=== PATIENT | male | born 1955 | race Caucasian/White ===

== ENCOUNTER 2023-02-14 16:15 | Emergency (ER) | payer MEDICARE, SELFPAY ==
[2023-02-14 16:27] VITALS: BP 152/72; PULSE 54; RESP 12; TEMP 36.9; O2SAT 98
--- NOTE | 2023-02-14 16:33 | ED.GENADULT ---
HPI - General Adult General Chief complaint: Skin/Abscess/Foreign Body Stated complaint: Bumps/Lumps on Face Time Seen by Provider: 02/14/23 16:33 Source: patient, RN notes reviewed and old records reviewed Mode of arrival: ambulatory Limitations: no limitations History of Present Illness HPI narrative: 67-year-old male presents to the [facility] with a red, inflamed area to the left side of his face. States has been there for over week. He has been trying a ?pop it. ? Has a history of Cysts to the under arms. Small area of erythema in the temporal area. Onset (ago): week(s) (1) Related Data Home Medications Medication Instructions Recorded Confirmed aspirin 81 mg tablet,delayed 81 mg PO DAILY 04/29/22 02/14/23 release mecobalamin (vitamin B12) 500 mcg 500 mcg PO DAILY 10/30/22 02/14/23 chewable tablet Allergies Allergy/AdvReac Type Severity Reaction Status Date / Time codeine Allergy Severe Anaphylaxis Verified 02/14/23 16:31 Review of Systems Review of Systems: All systems reviewed & are unremarkable except as noted in HPI and below Constitutional: Constitutional: Reports no additional constitutional complaints Eyes: Eyes: Reports no additional eye complaints ENT: Reports system reviewed and no additional complaints, except as documented Cardiovascular: Cardiovascular: Reports no additional cardiovascular complaints, Denies chest pain and Denies dyspnea Respiratory: Respiratory: Reports no additional respiratory complaints, Denies chest congestion, Denies cough and Denies dyspnea Gastrointestinal: Gastrointestinal: Reports no additional gastrointestinal complaints, Denies abdominal pain, Denies nausea and Denies vomiting Musculoskeletal: Musculoskeletal: Reports no additional musculoskeletal complaints Integumentary/Breasts: Skin/Breast: Reports as per HPI Neurologic: Reports system reviewed and no additional complaints, except as documented Psychiatric: Psychiatric: Reports no additional psychiatric complaints Allergic/Immunologic: Allergic/Immunologic: Reports no additional allergic/immunologic complaints [facility] Past Medical History Medical History Arthritis GERD (gastroesophageal reflux disease) Hypertension Surgical History Surgical History History of hip replacement January 2019 Family History Family History Father Cancer Hypertension Depression Sibling Cancer Grandparent Cerebrovascular accident Social History Social History Smoking status: Never smoker Alcohol intake: never Substance use: unknown Lack of Transportation: No Lack of Food: Never True Current Housing: I Have Housing Concerned About Future Housing: No Difficulty Paying Gas/Electric Bills: No Difficulty Paying for Meds: No Currently Unemployed: No Education: Trade/Vocational Certificate Difficulty w/ Childcare or Family Care: No Comments At the time of my signature, I reviewed and agree with the nursing past medical, surgical, social, and family history. There is no relevant family history pertinent to the patient complaint. Exam Const: General: cooperative, healthy appearing, comfortable, no acute distress, well developed, alert and well nourished Nutritional Appearance: well nourished Orientation/consciousness: patient oriented x3 Limitations: no limitations HENMT: Head: normal to inspection Head images: 1. 1 x 1 cm raised area. 1 x 1 and half erythema. Started cleaning area, dry skin removed, started draining thick purulent yellow, green drainage. Collected culture. Ears: hearing grossly normal bilaterally and external ears normal Face/Nose/Sinus: Normal external nose present, Normal nares present, Normal nasal mucous membranes and turbinates present
== END 2023-02-14 16:51 | disposition home or self-care (01) ==
PROVIDERS: Emergency Provider Nurse Practitioner; PCP Physician Assistant
DX: L03.211 Cellulitis of face (principal); L02.01 Cutaneous abscess of face; M19.90 Unspecified osteoarthritis, unspecified site; K21.9 Gastro-esophageal reflux disease without esophagitis; I10 Essential (primary) hypertension; Z79.82 Long term (current) use of aspirin
CPT/HCPCS: 87070; 87147; 87181; 87186; 87205; 99213; G0463

== ENCOUNTER 2024-08-11 02:52 | Observation (INO) | payer MEDICARE, SELFPAY ==
[2024-08-11] VITALS (15 sets, daily range): BP systolic 101–187; BP diastolic 50–79; PULSE 42–70; RESP 13–18; TEMP 36.2–36.8; O2SAT 96–100; BMI 36.6
--- NOTE | ~2024-08-11 | CT_ITS ---
EXAMINATION: CTA brain carotid DATE: 08/11/2024 07:15 INDICATION: Vertigo. Nystagmus. TECHNIQUE: Computed tomographic angiography (CTA) of the head was performed without and with 100 mL O mnipaque-350 intravenous contrast. CTA of the neck was performed with intravenous contrast. Automated exposure control and iterative reconstruction technique were employed. The dose-length product was 1 587.99 mGy-cm. Maximum intensity projection and volume rendered 3D-reconstructions were created by shelton lagos technologist on a separate workstation. COMPARISON: None. FINDINGS: HEAD CTA: There is no intracranial hemorrhage, acute infarction, or abnormal intracranial mass lesion . The ventricles are normal in size. There is mucosal thickening in the paranasal sinuses. The orbits are normal. The mastoid air cells are normal. The vertebral arteries are codominant. There is no sig nificant stenosis of basilar artery or the posterior cerebral arteries. There is no significant steno sis of the intracranial internal carotid arteries or anterior or middle cerebral arteries. Anterior c ommunicating artery is normal. There is no aneurysm. The posterior communicating arteries are normal. NECK CTA: There are no pathologically enlarged lymph nodes. There is no significant stenosis of the v ertebral arteries. There is an aberrant right subclavian artery. There is minimal plaque in the proxi mal internal carotid. There is 0% stenosis of the proximal right internal carotid artery relative to normal distal artery lumen diameter (NASCET criteria). There is 0% stenosis of the proximal left inte rnal carotid artery relative to normal distal artery lumen diameter. There is mild cervical spondylos is. IMPRESSION: 1. Normal brain. No aneurysm or significant intracranial arterial stenosis. 2. 0% stenosis of the proximal internal carotid arteries relative to normal distal artery lumen diame ters (NASCET criteria). Reviewed, dictated and finalized at location [] R COUNTER IMPRESSION: 1. Normal brain. No aneurysm or significant intracranial arterial stenosis. 2. 0% stenosis of the proximal internal carotid arteries relative to normal dis charity artery lumen diameters (NASCET criteria).
--- NOTE | 2024-08-11 03:04 | ECG_ITS ---
Test Date: 2024-08-11 03:09:49 Measurements Intervals [place] Rate: 43 P: 26 TN: 210 QRS: 35 QRSD: 97 T: 56 QT: 444 QTc: 378 Interpretive Statements SINUS BRADYCARDIA WITH FIRST DEGREE AV BLOCK BASELINE ARTIFACT- I, II, III, AVL, AVF ABNORMAL ECG No previous ECG available for comparison Electronically Signed On 08-11-2024 06:31:12 SERVICING REP by Cristian Pugh D.O.
--- NOTE | 2024-08-11 04:50 | ED.DIZZY ---
HPI - Dizziness General Chief Complaint: Dizziness Stated Complaint: dizzy Time Seen by Provider: 08/11/24 04:35 Source: patient and other (Sandra) Mode of arrival: ambulatory Limitations: no limitations History of Present Illness HPI Narrative: Patient presents with diffuse nausea for the past several days. He had 2 days of vomiting on Friday and Friday which then stopped. He visited urgent care on Friday and was tested with the viral panel a tested negative. He had taken home COVID test and tasted negative than as well. He was told he was dehydrated and advised to drink water but was not prescribed any medications. He denies any diarrhea or fever. Has from states that when he was vomiting earlier it was intense, vicious. No syncope or loss of consciousness. He denies any hearing changes, ear pain, or tinnitus. He does describe it as an intermittent sensation that the room is spinning. He does state that this is often preceded by him turning his head and makes the symptoms worse minute, the episodes seem to last for approximately 30 minutes. Sometimes the episodes happen when he changes position for example from seated to standing etc.. He denies any chest pain, shortness of breath, unilateral symptoms, slurred speech, altered mental status, dysphonia, aphasia, or abdominal pain. Related Data Home Medications Medication Instructions Recorded Confirmed aspirin 81 mg tablet,delayed 81 mg PO DAILY 04/29/22 03/29/24 release mecobalamin (vitamin B12) 500 mcg 500 mcg PO DAILY 10/30/22 03/29/24 chewable tablet doxycycline hyclate 100 mg capsule 100 mg PO BID 03/28/23 03/29/24 Allergies Allergy/AdvReac Type Severity Reaction Status Date / Time codeine Allergy Severe Anaphylaxis Verified 03/29/24 14:52 Sulfa (Sulfonamide AdvReac Intermediate Other Verified 03/29/24 14:52 Antibiotics) [facility] Past Medical History Medical History Arthritis GERD (gastroesophageal reflux disease) Hypertension Surgical History Surgical History History of hip replacement January 2019 Family History Family History Father Cancer Hypertension Depression Sibling Cancer Grandparent Cerebrovascular accident Social History Social History (Reviewed 05/12/23 @ 10:59 by Claire Murguia [facility]) Smoking status: Never smoker Alcohol intake: never Substance use: unknown Lack of Transportation: No Lack of Food: Never True Current Housing: I Have Housing Concerned About Future Housing: No Difficulty Paying Gas/Electric Bills: No Difficulty Paying for Meds: No Currently Unemployed: No Education: Trade/Vocational Certificate Difficulty w/ Childcare or Family Care: No Exam Narrative: GENERAL: Well-appearing, well-nourished, and in no acute distress. HEAD: Normocephalic, atraumatic. EYES: Non injected, non icteric. Patient has bilateral left beating horizontal nystagmus. When attempt to assess horizontal movements, he does have some nystagmus but it is not strictly horizontal. ENT: Nares clear, no rhinorrhea or epistaxis. Moist mucous membranes. Bilateral auditory canals clear without significant cerumen. Tympanic membranes usually visualized and normal. NECK: Supple. CHEST: Speaking in full sentences. No respiratory distress. HEART: Bradycardic rate and rhythm. ABDOMEN: Soft, nondistended. EXTREMITIES: Normal range of motion. No lower extremity edema. SKIN: Warm, dry. NEURO: No focal deficits. Alert and oriented x3. Speaks clearly without aphasia or dysarthria. No abnormal movements appreciated. PSYCH: Normal mood and affect. Course Vital Signs Vital signs: Vital Signs Temperature 97.7 F 08/11/24 03:02 Pulse Rate 44 L 08/11/24 03:02 Respiratory Rate 16 08/11/24 03:02 Blood Pressure 187/74 H 08/11/24 03:02 Pulse Oximetry 100 08/11/24 03:02 Oxygen Delivery Room Air 08/11/24 03:02 Temperature 97.7 F 08/11/24 03:02 Pulse Rate 47 L 08/11/24 08:10 Respiratory Rate 13 08/11/24 08:10 Blood Pressure 178/72 H 08/11/24 08:10 Pulse Oximetry 98 08/11/24 08:10 Oxygen Delivery Room Air 08/11/24 03:02 MDM - Dizziness MDM Narrative Medical decision making narrative: Patient presents with dizziness and nausea of several days duration occurring intermittently. He notes a room spinning sensation that occurs intermittently and seems to describe vertigo. In particular, he does note that his symptoms are often preceded by head movement but sometimes position movement as well. In the emergency department he is afebrile with vital signs notable for hypertension and bradycardia. DIFFERENTIAL DIAGNOSIS Peripheral causes: Foreign body, cerumen impaction, acute otitis media, labyrinthitis, benign paroxysmal positional vertigo, Meniere's disease, vestibular neuronitis, perilymphatic fistula, trauma, motion sickness, acoustic neuroma, ototoxic medications Central causes: infection ( encephalitis, meningitis, cerebritis); vertebrobasilar arterial insufficiency, subclavian steal syndrome, cerebellar or brainstem hemorrhage or infarction, vertebrobasilar migraine, trauma ( temporal bone fracture, post concussive syndrome); tumor (brainstem or cerebellum); MS; temporal lobe epilepsy He has left beating horizontal nystagmus on exam. He is initially given meclizine given the presumption of peripheral etiology with only slight change/improvement. Patient's heart rate did increase during orthostatic vital sign testing. His given IV fluids and diazepam. Patient continues to be symptomatic and when nurses attempt to ambulate him, he becomes very symptomatic, nearly falling. Discussed with Dr Mendoza who recommends admitting for MRI. Patient agreeable. Confirmed no pacemaker. Discussed with Dr Velarde for admission. Differential Diagnosis Differential diagnosis: Likely benign paroxysmal positional vertigo, orthostatic hypotension, vertebral basilar insufficiency, cerebrovascular accident, acute vestibular neuronitis and transient cerebral ischemia Lab Data Attestation: I reviewed the patient's lab results. Lab results narrative: Normocytic anemia, stable from previous 08/11/24 06:13 08/11/24 06:13 Labs: Lab Results 08/11/24 Range/Units 06:13 WBC 5.5 (4.5-10.0) K/mm3 RBC 4.79 (4.6-6.20) M/mm3 Hgb 12.8 L (14.0-18.0) g/dL Hct 40.4 L (42.0-52.0) % MCV 84.3 (80-100) fl MCH 26.7 (26-34) pg MCHC 31.7 L (32-36) g/dl RDW 13.9 (11.5-14.5) % Plt Count 194 (150-375) k/mm3 MPV 9.1 (7.4-10.4) fl Immature Gran % (Auto) 0.2 (0-0.5) % Neut % (Auto) 69.4 (45.5-73.1) % Lymph % (Auto) 20.6 (18.3-44.2) % Tift % (Auto) 7.2 (2.6-8.5) % Eos % (Auto) 1.7 (0-4.4) % Baso % (Auto) 0.9 (0.2-1.2) % Lymph # (Auto) 1.12 (0.9-3.2) K/mm3 Tift # (Auto) 0.4 (0.1-0.6) K/mm3 Eos # (Auto) 0.1 (0-0.3) K/mm3 Baso # (Auto) 0.1 (0.0-0.1) K/mm3 Abs Immat Gran (auto) 0.01 (0.00-0.031) K/mm3 Absolute Neuts (auto) 3.8 (1.3-6.7) K/mm3 Absolute Nucleated RBC 0.000 (0.0-0.012) K/mm3 Nucleated RBC % 0.0 (0.0-0.2) % Sodium 141 (137-145) mmol/L Potassium 3.9 (3.4-5.0) mmol/L Chloride 102 (98-107) mmol/L Carbon Dioxide 32 H (22-30) mmol/L Anion Gap 7 (4-12) mmol/L BUN 18 (9-20) mg/dL Creatinine 1.00 (0.7-1.3) mg/dL Estim Creat Clear Calc 75 ml/min Estimated GFR > 60 (59 - ) Glucose 121 H (65-110) mg/dL Calcium 9.3 (8.4-10.2) mg/dL Total Bilirubin 0.7 (0.2-1.3) mg/dL AST 29 (17-59) U/L ALT 39 (6-50) U/L Alkaline Phosphatase 64 (38-126) U/L Total Protein 7.0 (6.3-8.2) g/dL Albumin 4.3 (3.5-5.1) g/dL ECG Data EKG #1: Attestation: I personally reviewed and interpreted this ECG as follows: ECG completion date: 08/11/24 ECG completion time: 03:09 Prior ECG tracings: not available for review (No prior for comparison) Interpretation: Sinus bradycardia at a rate of 43 beats per minute. First-degree AV block with a WA interval of 210 milliseconds. QRS 97. QT/QTC 444/390. Good R-wave progression across the precordial leads. No T-wave inversions. Normal axis. Discharge Plan Discharge Clinical Impression: Vertigo, Bradycardia, sinus, First degree AV block Patient Disposition: Still a Patient Condition: Stable Prescriptions: No Action doxycycline hyclate 100 mg capsule 100 mg PO BID buspirone 7.5 mg tablet 7.5 mg PO BID PRN (Reason: anxiety) Qty: 30 1RF aspirin 81 mg tablet,delayed release (DR/EC) 81 mg PO DAILY mecobalamin (vitamin B12) 500 mcg tablet,chewable 500 mcg PO DAILY irbesartan-hydrochlorothiazide 150-12.5 mg tablet 1 tablet PO DAILY Qty: 90 3RF atorvastatin 10 mg tablet 10 mg PO DAILY Qty: 90 3RF pantoprazole 40 mg tablet,delayed release (DR/EC) 40 mg PO QAM Qty: 90 2RF trazodone 100 mg tablet 200 mg PO QHS Qty: 180 1RF Follow-up/Referrals: PHYSICIAN NOT ON STAFF,NONSTAFF [Primary Care Provider] - Time of Disposition: 08:36
[2024-08-11] MEDS: MECLIZINE HCL 25 MG TABLET PO (05:21)
[2024-08-11 06:19] LABS: Basophils Absolute Auto 0.1 K/mm3 (0.0-0.1); Basophils Percent Auto 0.9 % (0.2-1.2); Eosinophils Absolute Auto 0.1 K/mm3 (0-0.3); Eosinophils Percent Auto 1.7 % (0-4.4); Hematocrit 40.4 % (42.0-52.0); Hemoglobin 12.8 g/dL (14.0-18.0); Immature Granulocyte Absolute 0.01 K/mm3 (0.00-0.031); Immature Granulocyte Percent A 0.2 % (0-0.5); Lymphocytes Absolute Auto 1.12 K/mm3 (0.9-3.2); Lymphocytes Percent Auto 20.6 % (18.3-44.2); Mean Corpuscular HGB Conc 31.7 g/dl (32-36); Mean Corpuscular Hemoglobin 26.7 pg (26-34); Mean Corpuscular Volume 84.3 fl (80-100); Mean Platelet Volume 9.1 fl (7.4-10.4); Monocytes Absolute Auto 0.4 K/mm3 (0.1-0.6); Monocytes Percent Auto 7.2 % (2.6-8.5); Neutrophils Absolute Auto 3.8 K/mm3 (1.3-6.7); Neutrophils Percent Auto 69.4 % (45.5-73.1); Platelet Count Result 194 k/mm3 (150-375); Red Blood Count 4.79 M/mm3 (4.6-6.20); Red Cell Distribution Width 13.9 % (11.5-14.5); White Blood Count 5.5 K/mm3 (4.5-10.0)
[2024-08-11] MEDS: SODIUM CHLORIDE 0.9% IV 1,000 ML 999 ML IV CONT (06:34)
[2024-08-11 06:35] LABS: Alanine Aminotransferase 39 U/L (6-50); Albumin Level 4.3 g/dL (3.5-5.1); Alkaline Phosphatase 64 U/L (38-126); Anion Gap 7 mmol/L (4-12); Aspartate Amino Transferase 29 U/L (17-59); Bilirubin,Total 0.7 mg/dL (0.2-1.3); Blood Urea Nitrogen 18 mg/dL (9-20); Calcium 9.3 mg/dL (8.4-10.2); Carbon Dioxide 32 mmol/L (22-30); Chloride 102 mmol/L (98-107); Estimated CRCL calculation 75 ml/min; Estimated Glomerular Filt Rate > 60; Glucose 121 mg/dL (65-110); Potassium 3.9 mmol/L (3.4-5.0); Sodium 141 mmol/L (137-145)
[2024-08-11] MEDS: diazePAM INJ (*CRX) 10 MG/2 ML SYRINGE 2.5 MG IV PUSH (07:20)
[2024-08-11] MEDS: diphenhydrAMINE HCl INJ 50 MG/ML VIAL 25 MG IV PUSH (08:45)
--- NOTE | 2024-08-11 09:45 | ADMGEN ---
This patient, Luis Galvan, was admitted to Medical Room 348-01. Patient/family oriented to hospital policies and general routines including ID bracelet, bed and alarms, visiting hours, pain management, procedures, bathroom and other care routines, personal items, smoking policy, room service/diet, and visiting hours. Information on how to activate the Rapid Response Team has been discussed. Patient/Family are encouraged to report perceived risks to care and to ask questions if they do not understand what they are told or what they should do.
--- NOTE | 2024-08-11 11:52 | WPDNEURCNPN ---
Assessment and Plan Assessment and plan (1) Vertigo: Code(s): R42 - Dizziness and giddiness Status: Acute Plan Left-sided vestibular neuronitis with the possibility of posterior circulation stroke needs to be ruled out as planned MRI will be done. Consult date: 08/11/24 HPI: Luis Galvan is a 68 year old male admitted to the hospital through the emergency room where he presented with the complaints of dizziness , nausea several days duration in addition to the history of vomiting over the last 2 days initially he was seen in the urgent care where his viral evaluation was negative he had taken the COVID test at home which was negative but he was notedly dehydrated was advised to increase the fluid he had no history of n diarrhea or fever on the day of admission to the ER he was noted to have intense vomiting but no history of unconsciousness no history of hearing changes pain in the ear or tinnitus but he complained of intermittent sensation of the room spinning often preceded by him turning his head which making the symptomatology worse and episodes usually lasting for 30minutes gave no history of any other neurological symptomatology. Has been taking aspirin 81mg daily vitamin B12 500mg daily and doxycycline 100mg b.i.d.. He is allergic to codeine and sulfa. He mentioned he does have ongoing history of GERD hypertension and history of hip replacement in 2018 he has never smoker or alcohol intake or. On initial exam in the emergency room he was noted to have bilateral left sided beating horizontal nystagmus vital signs were normal except blood pressure 187/74 CBC was normal so as the BMP and complete lack EKG was with bradycardia 43 beats per minute head neck CTA was negative admitted to the hospital with the diagnosis of benign paroxysmal positional vertigo versus vertebral basilar insufficiency versus acute vestibular neuronitis Review of Systems Review of Systems: All systems reviewed & are unremarkable except as noted in HPI and below [facility] Past Medical History Medical History Arthritis GERD (gastroesophageal reflux disease) Hypertension Surgical History Surgical History History of hip replacement January 2019 Family History Family History Father Cancer Hypertension Depression Sibling Cancer Grandparent Cerebrovascular accident Social History Social History Smoking status: Never smoker Alcohol intake: never Substance use: never Do You Feel Safe in your Home?: Yes Lack of Transportation: No Lack of Food: Never True Current Housing: I Have Housing Concerned About Future Housing: No Difficulty Paying Gas/Electric Bills: No Difficulty Paying for Meds: No Currently Unemployed: No Education: Trade/Vocational Certificate Difficulty w/ Childcare or Family Care: No Spiritual care concerns: No Meds Home Medications and Allergies Home Medications Medication Instructions Recorded Confirmed Type aspirin 81 mg tablet,delayed 81 mg PO DAILY 04/29/22 03/29/24 History release mecobalamin (vitamin B12) 500 mcg 500 mcg PO DAILY 10/30/22 03/29/24 History chewable tablet doxycycline hyclate 100 mg capsule 100 mg PO BID 03/28/23 03/29/24 History buspirone 7.5 mg tablet 7.5 mg PO BID PRN anxiety #30 tabs 03/29/24 03/29/24 Rx irbesartan 150 1 tablet PO DAILY #90 tabs 04/27/24 Rx mg-hydrochlorothiazide 12.5 mg tablet atorvastatin 10 mg tablet 10 mg PO DAILY #90 tabs 05/14/24 Rx pantoprazole 40 mg tablet,delayed 40 mg PO QAM #90 tabs 05/21/24 Rx release trazodone 100 mg tablet 200 mg PO QHS #180 tabs 07/23/24 Rx Allergies Allergy/AdvReac Type Severity Reaction Status Date / Time codeine Allergy Severe Anaphylaxis Verified 08/11/24 09:53 Sulfa (Sulfonamide AdvReac Intermediate Other Verified 08/11/24 09:53 Antibiotics) Vital Signs Vital Signs - 24 hr 08/11/24 03:02 08/11/24 04:33 08/11/24 04:33 Temperature 36.5 C Pulse Rate 44 L 44 L 42 L Respiratory Rate 16 17 Blood Pressure 187/74 H 183/74 H Pulse Oximetry 100 97 Oxygen Delivery Room Air 08/11/24 06:13 08/11/24 06:16 08/11/24 06:17 Temperature Pulse Rate 45 L 47 L 70 Respiratory Rate Blood Pressure 146/72 H 142/77 H 132/69 Pulse Oximetry Oxygen Delivery 08/11/24 07:21 08/11/24 08:10 08/11/24 08:47 Temperature Pulse Rate 46 L 47 L 56 L Respiratory Rate 14 13 18 Blood Pressure 155/76 H 178/72 H 160/79 H Pulse Oximetry 98 98 99 Oxygen Delivery 08/11/24 09:36 08/11/24 09:36 08/11/24 10:20 Temperature 36.4 C 36.3 C L Pulse Rate 53 L 53 L 47 L Respiratory Rate 18 16 Blood Pressure 150/78 H 159/70 H Pulse Oximetry 98 98 Oxygen Delivery 08/11/24 11:45 Temperature Pulse Rate Respiratory Rate Blood Pressure Pulse Oximetry Oxygen Delivery Room Air Exam Narrative: revealed him to be awake alert cooperative in no obvious acute distress, head normocephalic with no cranial bruits, ear nose throat examination normal, neck supple with no cervical bruit no thyromegaly no lymphadenopathy, heart regular with no murmur, lungs clear to auscultation, abdomen is soft with no organomegaly, neurological examination revealed him to be awake alert oriented x3 his speech not dysphasic not dysarthric nose not dysphonic pupils round regular feels the vision for extraocular movements full with the left-sided beating nystagmus bilateral facial sensation intact face symmetrical tongue midline uvula midline motor examination revealed normal strength and tone deep tendon reflexes symmetrical plantars downgoing there is no evidence of gross cerebellar deficit. Results Labs 08/11/24 06:13 08/11/24 06:13 Labs: Short CBC 08/11/24 Range/Units 06:13 WBC 5.5 (4.5-10.0) K/mm3 Hgb 12.8 L (14.0-18.0) g/dL Hct 40.4 L (42.0-52.0) % Plt Count 194 (150-375) k/mm3 BMP 08/11/24 06:13 Sodium 141 Potassium 3.9 Chloride 102 Carbon Dioxide 32 H BUN 18 Creatinine 1.00 Glucose 121 H Calcium 9.3 Liver Function 08/11/24 Range/Units 06:13 Total Bilirubin 0.7 (0.2-1.3) mg/dL AST 29 (17-59) U/L ALT 39 (6-50) U/L Alkaline Phosphatase 64 (38-126) U/L Albumin 4.3 (3.5-5.1) g/dL
--- NOTE | 2024-08-11 12:39 | PM.IMHP ---
H&P: HPI History of Present Illness Date/Time: 08/11/24 12:39 Chief Complaint: Dizziness Narrative: 68 y/o M presents here with dizziness with PMH of arthritis, GERD, and HTN. The patient presents here from home for further evaluation of dizziness. He reports onset on Friday (08/07) while he was heading to [place] to listen to a friends band around 4 p.m. Dizziness so severe he was stumbling. Most severe on Friday, has improved since then and returned on Friday but remains less severe. Dizziness worsens with turning his head to the side, quick position changes and no alleviating factors. He describes the sensation as the room was spinning and that he was spinning. At its worst the dizziness lasted from 4 p.m. into the next morning but more on average they would only last a couple minutes and would resolve without intervention/OTC medications. Some visual disturbances during dizziness described as if stuff would move to the side). No dark spots, diplopia, blurred vision. He reports accompanying nausea with vomiting and initially had a headache. Describes as frontal and near his eyes, resolved. Last emesis was Friday. Denies focal numbness, focal weakness, vision changes, changes in speech, choking/difficulty swallowing, or changes in gait. He does not have a history of stroke or benign paroxysmal vertigo. Denies any new medications. Endorses occasional alcohol use, not daily. Initial VS at presentation: 97.7? F, HR 44, RR 16, 187/74, and 100% on RA. ED workup showed: No leukocytosis, hemoglobin 12.8 (previously 12.8 on 08/07/2024), no significant electrolyte derangements, creatinine 1.0 and for GFR, glucose 121. Head/neck CTA showed normal brain, no aneurysm or significant intracranial arterial stenosis, 0% stenosis of the bilateral proximal ICAs. Review of Systems Review of Systems: All systems reviewed & are unremarkable except as noted in HPI and below PMFSH Past Medical History Medical History Arthritis B12 deficiency GERD (gastroesophageal reflux disease) Hyperlipidemia Hypertension Surgical History Surgical History History of hip replacement January 2019, Left Hip History of tonsillectomy Family History Family History Father Cancer Hypertension Depression Sibling Cancer Grandparent Cerebrovascular accident Social History Social History Smoking status: Never smoker Alcohol intake: never Substance use: never Do You Feel Safe in your Home?: Yes Lack of Transportation: No Lack of Food: Never True Current Housing: I Have Housing Concerned About Future Housing: No Difficulty Paying Gas/Electric Bills: No Difficulty Paying for Meds: No Currently Unemployed: No Education: Trade/Vocational Certificate Difficulty w/ Childcare or Family Care: No Spiritual care concerns: No Meds Home Medications and Allergies Home Medications Medication Instructions Recorded Confirmed Type aspirin 81 mg tablet,delayed 81 mg PO DAILY 04/29/22 08/11/24 History release buspirone 7.5 mg tablet 7.5 mg PO BID PRN anxiety #30 tabs 03/29/24 08/11/24 Rx irbesartan 150 1 tablet PO DAILY #90 tabs 04/27/24 08/11/24 Rx mg-hydrochlorothiazide 12.5 mg tablet atorvastatin 10 mg tablet 10 mg PO DAILY #90 tabs 05/14/24 08/11/24 Rx pantoprazole 40 mg tablet,delayed 40 mg PO QAM #90 tabs 05/21/24 08/11/24 Rx release trazodone 100 mg tablet 200 mg PO QHS #180 tabs 07/23/24 08/11/24 Rx cholecalciferol (vitamin D3) 1,000 mcg PO DAILY 08/11/24 08/11/24 History mecobalamin (vitamin B12) 1,000 500 mcg PO DAILY 08/11/24 08/11/24 History mcg chewable tablet (B12 Active) Allergies Allergy/AdvReac Type Severity Reaction Status Date / Time codeine Allergy Severe Anaphylaxis Verified 08/11/24 09:53 Sulfa (Sulfonamide AdvReac Intermediate Other Verified 08/11/24 09:53 Antibiotics) Vital Signs Vital Signs - 24 hr 08/11/24 03:02 08/11/24 04:33 08/11/24 04:33 Temperature 97.7 F Pulse Rate 44 L 44 L 42 L Respiratory Rate 16 17 Blood Pressure 187/74 H 183/74 H Pulse Oximetry 100 97 Oxygen Delivery Room Air 08/11/24 06:13 08/11/24 06:16 08/11/24 06:17 Temperature Pulse Rate 45 L 47 L 70 Respiratory Rate Blood Pressure 146/72 H 142/77 H 132/69 Pulse Oximetry Oxygen Delivery 08/11/24 07:21 08/11/24 08:10 08/11/24 08:47 Temperature Pulse Rate 46 L 47 L 56 L Respiratory Rate 14 13 18 Blood Pressure 155/76 H 178/72 H 160/79 H Pulse Oximetry 98 98 99 Oxygen Delivery 08/11/24 09:36 08/11/24 09:36 08/11/24 10:20 Temperature 97.6 F 97.3 F L Pulse Rate 53 L 53 L 47 L Respiratory Rate 18 16 Blood Pressure 150/78 H 159/70 H Pulse Oximetry 98 98 Oxygen Delivery 08/11/24 11:45 Temperature Pulse Rate Respiratory Rate Blood Pressure Pulse Oximetry Oxygen Delivery Room Air Exam Narrative: horizontal nystagmus. otherwise fine. Const: General: comfortable and no acute distress Other: , male, nontoxic appearance HENMT: Face/Nose/Sinus: Normal nares present Mouth: Yes moist mucous membranes Eyes: General: appearance normal, both eyes and all related structures Sclera: sclerae normal Pupils: Equal, round and reactive pupils present EOM: EOMs intact bilaterally Resp: Effort & Inspection: normal respiratory effort Auscultation: clear to auscultation bilaterally Cardio: Rate: regular rate Rhythm: regular rhythm Other: S1-S2 present without murmur, rub, ectopy GI: Other: abdomen soft, nondistended, nontender Skin: General skin exam: normal color and no rashes or lesions noted Wounds: no wounds Neuro: Speech: normal speech Motor exam (neuro): 5/5 motor strength present throughout Sensory Exam: normal sensation Other: A/Ox4. horizontal nystagmus (left side beat). Extrem: General: normal to inspection Psych: Mental Status: mental status grossly normal Affect: normal affect Other: good insight and judgment H&P: Results Labs Labs: Short CBC 08/11/24 Range/Units 06:13 WBC 5.5 (4.5-10.0) K/mm3 Hgb 12.8 L (14.0-18.0) g/dL Hct 40.4 L (42.0-52.0) % Plt Count 194 (150-375) k/mm3 BMP 08/11/24 06:13 Sodium 141 Potassium 3.9 Chloride 102 Carbon Dioxide 32 H BUN 18 Creatinine 1.00 Glucose 121 H Calcium 9.3 Liver Function 08/11/24 Range/Units 06:13 Total Bilirubin 0.7 (0.2-1.3) mg/dL AST 29 (17-59) U/L ALT 39 (6-50) U/L Alkaline Phosphatase 64 (38-126) U/L Albumin 4.3 (3.5-5.1) g/dL Assessment and Plan Assessment and plan (1) Vertigo: Code(s): R42 - Dizziness and giddiness Status: Acute Assessment and Plan: - Head/Neck CT 1. Normal brain. No aneurysm or significant intracranial arterial stenosis. 2. 0% stenosis of the proximal internal carotid arteries relative to normal distal artery lumen diameters (NASCET criteria). - neurology consulted, Kelly BERNABE provided the following recs: Plan for brain MRI to rule out CVA Left-sided vestibular neuritis versus posterior circulation stroke - add lipid panel and A1C - continue atorvastatin and daily ASA, add Plavix while ruling out CVA and meclizine prn. - neuro checks q.4 - no change with Rosalino maneuver - DDx: left-sided vestibular neuritis, posterior circulation stroke, BPV, hypertensive urgency Patient refused an MRI stating he is requesting outpatient MRI due to severe anxiety. Has previously tried 3 separate occasions to undergo an MRI, did not tolerate and has previously been sedated for imaging. Does not want to be transferred for imaging after long discussion with bedside RN. Okay with monitoring BP and HR overnight and scheduling outpatient imaging vs transfer. (2) First degree AV block: Code(s): I44.0 - Atrioventricular block, first degree Status: Acute Assessment and Plan: - EKG, initial: sinus ramesh (rate 43) with first degree AV block. no previous available for comparison - HR range since arrival: 42-70 - reviewed home medications, no rate controlling meds - telemetry monitoring (3) Hypertension: Qualifiers: Hypertension type: primary hypertension Qualified Code(s): I10 - Essential (primary) hypertension Code(s): I10 - Essential (primary) hypertension Status: Chronic Assessment and Plan: - chronic, currently 159/70 - continue home medications: irbesartan-HCTZ - add hydralazine prn for BP greater than 180/90 - monitor Plan Diet: Regular GI Prophylaxis: Not currently indicated DVT Prophylaxis: SCDs Lines: Peripheral Code Status: Full code Quality VTE Prophylaxis VTE prophylaxis: mechanical ordered Hospitalist MIPS Advance Care Plan I have confirmed that the patient's Advanced Care Plan is present, code status is documented, or surrogate decision maker is listed in patient medical record.: Yes Medication Reconciliation I have utilized all available resources to obtain, update and review the patients current medications (includes all prescriptions, OTC, herbals, cannabis, and nutritional supplements).: Yes
[2024-08-11] MEDS: MECLIZINE HCL 12.5 MG TABLET PO ×2 (17:20→20:12)
[2024-08-11] MEDS: traZODone HCL 50 MG TABLET 200 MG PO (20:12)
[2024-08-12] VITALS (14 sets, daily range): BP systolic 124–155; BP diastolic 59–71; PULSE 42–59; RESP 12–18; TEMP 36.2–36.8; O2SAT 94–98
[2024-08-12 06:45] LABS: Basophils Absolute Auto 0.1 K/mm3 (0.0-0.1); Basophils Percent Auto 1.2 % (0.2-1.2); Eosinophils Absolute Auto 0.2 K/mm3 (0-0.3); Eosinophils Percent Auto 4.7 % (0-4.4); Hematocrit 38.8 % (42.0-52.0); Hemoglobin 12.1 g/dL (14.0-18.0); Lymphocytes Absolute Auto 1.08 K/mm3 (0.9-3.2); Lymphocytes Percent Auto 25.3 % (18.3-44.2); Mean Corpuscular HGB Conc 31.2 g/dl (32-36); Mean Corpuscular Hemoglobin 26.6 pg (26-34); Mean Corpuscular Volume 85.3 fl (80-100); Mean Platelet Volume 9.3 fl (7.4-10.4); Monocytes Absolute Auto 0.4 K/mm3 (0.1-0.6); Monocytes Percent Auto 8.4 % (2.6-8.5); Neutrophils Absolute Auto 2.6 K/mm3 (1.3-6.7); Neutrophils Percent Auto 60.4 % (45.5-73.1); Platelet Count Result 174 k/mm3 (150-375); Red Blood Count 4.55 M/mm3 (4.6-6.20); Red Cell Distribution Width 14.1 % (11.5-14.5); White Blood Count 4.3 K/mm3 (4.5-10.0)
--- NOTE | 2024-08-12 06:56 | PC.NURSE ---
This RN received report OTP at [id number] from Jennie JONES.
[2024-08-12 07:03] LABS: Anion Gap 3 mmol/L (4-12); Blood Urea Nitrogen 17 mg/dL (9-20); Carbon Dioxide 31 mmol/L (22-30); Chloride 105 mmol/L (98-107); Cholesterol 132 mg/dL (0-200); Estimated CRCL calculation 63 ml/min; Estimated Glomerular Filt Rate 60; Glucose 119 mg/dL (65-110); HDL Direct 40 mg/dL; Potassium 4.1 mmol/L (3.4-5.0); Sodium 139 mmol/L (137-145); Triglycerides 98 mg/dL (<150)
[2024-08-12 07:14] LABS: LDL Cholesterol Direct 66 mg/dL
[2024-08-12 08:18] LABS: Hemoglobin A1C 7.1 % (<5.7)
--- NOTE | 2024-08-12 08:50 | P.PNIM_ITS ---
Progress Note: A&P Assessment and Plan (1) Vertigo: Code(s): R42 - Dizziness and giddiness Status: Acute Assessment and Plan: - DDx: left-sided vestibular neuritis, posterior circulation stroke, BPV, hypertensive urgency vs bradycardia - Head/Neck CTA 1. Normal brain. No aneurysm or significant intracranial arterial stenosis. 2. 0% stenosis of the proximal internal carotid arteries relative to normal distal artery lumen diameters (NASCET criteria). - Lipid panel WNL - A1C 7.1 - continue atorvastatin and daily ASA, per neurology Dr. Villareal no need to add plavix at this time - meclizine ordered - neuro checks q.4 - no change with Rosalino maneuver - Monitor CBC, CMP, magnesium, troponin, and lipid profile - Monitor blood pressure, allow for permissive hypertension. Will treat h ypertension if systolic is greater than 220 and/or diastolic greater than 120 or if the patient has active comorbidities - Telemetry monitoring - neurology consulted, Dionna BERNABE provided the following recs: Per chart review, patient refused an MRI stating he is requesting outpatient MRI due to severe anxiety. Has previously tried 3 separate occasions to undergo an MRI, did not tolerate and has previously been sedated for imaging. Does not want to be transferred for imaging after long discussion with bedside RN. Okay with monitoring BP and HR overnight and scheduling outpatient imaging. (2) First degree AV block: Code(s): I44.0 - Atrioventricular block, first degree Status: Acute Assessment and Plan: - EKG, initial: sinus ramesh (rate 43) with first degree AV block. no previous available for comparison - HR range since arrival: 42-70 - reviewed home medications, no rate controlling meds - telemetry monitoring Spoke with patients RN who states that the overnight MD had him transferred to IMU due to patient becoming bradycardic to the 20-30s. - Cardiology consulted - sinus bradycardia - has not noticed any pauses in the last 24 hours - previously mentioned pauses may be secondary to increased autonomic activation secondary to nausea and vomiting from his vertigo - he can follow up with Cardiology outpatient (3) Hypertension: Qualifiers: Hypertension type: primary hypertension Qualified Code(s): I10 - Essential (primary) hypertension Code(s): I10 - Essential (primary) hypertension Status: Chronic Assessment and Plan: Chronic, continue home medications - continue irbesartan 150 mg/hydrochlorothiazide 12.5 mg p.o. daily - add hydralazine prn for BP greater than 180/90 - monitor Plan Diet: Regular GI Prophylaxis: Not currently indicated DVT Prophylaxis: SCDs Lines: Peripheral Code Status: Full code Time Spent With Patient Time with patient: 25 - 35 minutes Subjective Date/time seen: 08/12/24 08:50 Interval history: 68 year old male with PMH of arthritis, GERD, and HTN presents to the hospital with dizziness. Spoke with patients RN who states that the overnight MD had him transferred to IMU due to patient becoming bradycardic to the 20-30s. Patient is pleasant lying comfortably in bed. He continues to endorse slight dizziness however he states that this is much improved since admission. He notes that he was moved to the IMU due to low heart rates. he denies any associated symptoms with the bradycardia. He was evaluated by Cardiology today who recommend a Holter monitor at time of discharge with follow-up in the cardiology office. Also discussed patient with Neurology who notes that patient does not need Plavix therapy as he is on statin and aspirin for his prior TIA. Per Dr. Porter patient is able to get an outpatient MRI to further rule out stroke. Patient has no other complaints at this time denying chest pain, shortness a breath, nausea / vomiting, and abdominal pain. Review of Systems Review of Systems: All systems reviewed & are unremarkable except as noted in HPI and below Exam Narrative: AF HR 50 RR 16 SpO2 16 BP 139/65 General: male in no acute respiratory distress who is nontoxic appearing, lying semi recumbent in bed. HEENT: Normocephalic. Atraumatic. Extraocular movement intact. Sclera clear and anicteric. No facial asymmetry. no nystagmus. Chest: Lungs are clear to auscultation bilaterally. No wheezes or crackles. CV: Heart was Bradycardic and regular rhythm. S1/S2. No murmurs, gallops, or rubs. Abd: Abdomen was soft. Nontender. Nondistended. Positive bowel sounds. No organomegaly or masses. Ext: No clubbing, cyanosis, or edema. 2+ DP pulses bilaterally. Neuro: Patient is alert and oriented x4. Strength is 5/5 in both upper and lower extremities. Cranial nerves 2-12 are intact. Speech is clear. Objective Data Vital Signs Vital Signs: Vital Signs - 24 hr 08/11/24 09:36 08/11/24 09:36 08/11/24 10:20 Temperature 97.6 F 97.3 F L Pulse Rate 53 L 53 L 47 L Respiratory Rate 18 16 Blood Pressure 150/78 H 159/70 H Pulse Oximetry 98 98 Oxygen Delivery 08/11/24 11:45 08/11/24 12:59 08/11/24 15:40 Temperature 98.3 F Pulse Rate 46 L 54 L Respiratory Rate 16 Blood Pressure 136/54 L Pulse Oximetry 96 Oxygen Delivery Room Air 08/11/24 16:00 08/11/24 21:32 08/11/24 20:00 Temperature 97.1 F L Pulse Rate 57 L 53 L Respiratory Rate 16 Blood Pressure 101/50 L Pulse Oximetry 97 Oxygen Delivery Room Air 08/11/24 20:00 08/12/24 00:00 08/12/24 04:00 Temperature Pulse Rate 47 L 43 L 44 L Respiratory Rate Blood Pressure Pulse Oximetry Oxygen Delivery 08/12/24 04:29 08/12/24 08:10 08/12/24 08:49 Temperature 97.2 F L 98.1 F Pulse Rate 53 L 49 L Respiratory Rate 16 12 Blood Pressure 126/71 148/59 H Pulse Oximetry 95 98 95 Oxygen Delivery Room Air Intake/Output Intake/Output: Intake & Output 08/09/24 08/10/24 08/11/24 08/12/24 23:59 23:59 23:59 23:59 Intake Total 1440 0 Balance 1440 0 Meds/Results Medications: Active Medications Generic Name Dose Route Start Last Admin Trade Name Michaelq PRN Reason Stop Dose Admin Acetaminophen 650 mg 08/11/24 08:36 Acetaminophen 325 Mg Tablet PO Q4H PRN Mild Pain (1-3) or Fever Aspirin 81 mg 08/12/24 09:00 Aspirin 81 Mg Enteric Tablet PO DAILY [facility] Atorvastatin Calcium 10 mg 08/12/24 09:00 Atorvastatin 10 Mg Tablet PO DAILY [facility] Buspirone HCl 5 mg 08/11/24 16:51 Buspirone Hcl 5 Mg Tablet PO BID PRN anxiety Buspirone HCl 2.5 mg 08/11/24 16:52 Buspirone Hcl 2.5 Mg Tablet PO BID PRN anxiety Cyanocobalamin 500 mcg 08/12/24 09:00 Cyanocobalamin 500 Mcg Tablet PO QAM [facility] Hydralazine HCl 10 mg 08/11/24 13:03 Hydralazine Hcl 20 Mg/Ml Vial IV PUSH Q8H PRN BP greater than 180/90 Hydrochlorothiazide 12.5 mg 08/12/24 09:00 Hydrochlorothiazide 12.5 Mg Capsule PO QAM [facility] Irbesartan 150 mg 08/12/24 09:00 Irbesartan 150 [facility] [place] Meclizine HCl 12.5 mg 08/11/24 17:00 08/11/24 20:12 Meclizine Hcl 12.5 Mg Tablet PO 12.5 mg QID [facility] Administration Ondansetron HCl 4 mg 08/11/24 08:36 Ondansetron Inj 4 Mg/2 Ml Vial IV PUSH Q4H PRN Nausea Pantoprazole Sodium 40 mg 08/12/24 09:00 Pantoprazole 40 Mg Tablet PO QAM [facility] Trazodone HCl 200 mg 08/11/24 21:00 08/11/24 20:12 Trazodone Hcl 50 Mg Tablet PO 200 mg QHS [facility] Administration Vitamin D 1,000 units 08/12/24 09:00 Cholecalciferol 1,000 Units Tablet PO DAILY [facility] Radiology Results: ITS Impressions Head/Neck CTA 08/11/24 07:58 IMPRESSION: 1. Normal brain. No aneurysm or significant intracranial arterial stenosis. 2. 0% stenosis of the proximal internal carotid arteries relative to normal distal artery lumen diameters (NASCET criteria). Labs Labs: Laboratory Results - last 24 hr 08/12/24 06:39 WBC 4.3 L RBC 4.55 L Hgb 12.1 L Hct 38.8 L MCV 85.3 MCH 26.6 MCHC 31.2 L RDW 14.1 Plt Count 174 MPV 9.3 Immature Gran % (Auto) 0.0 Neut % (Auto) 60.4 Lymph % (Auto) 25.3 [place] % (Auto) 8.4 Eos % (Auto) 4.7 H Baso % (Auto) 1.2 Lymph # (Auto) 1.08 [place] # (Auto) 0.4 Eos # (Auto) 0.2 Baso # (Auto) 0.1 Abs Immat Gran (auto) 0.00 Absolute Neuts (auto) 2.6 Absolute Nucleated RBC 0.000 Nucleated RBC % 0.0 Sodium 139 Potassium 4.1 Chloride 105 Carbon Dioxide 31 H Anion Gap 3 L BUN 17 Creatinine 1.20 Estim Creat Clear Calc 63 Estimated GFR 60 Glucose 119 H Hemoglobin A1c 7.1 H Calcium 9.0 Triglycerides 98 Cholesterol 132 LDL Cholesterol Direct 66 HDL Direct 40 Quality VTE Prophylaxis VTE prophylaxis: mechanical ordered
[2024-08-12] MEDS: MECLIZINE HCL 12.5 MG TABLET PO ×3 (09:00→21:03)
[2024-08-12] MEDS: PANTOPRAZOLE 40 MG TABLET PO (09:39)
[2024-08-12] MEDS: IRBESARTAN 150 MG TABLET PO (09:39)
[2024-08-12] MEDS: CHOLECALCIFEROL 1,000 UNITS TABLET 1000 UNITS PO (09:40)
[2024-08-12] MEDS: ASPIRIN 81 MG ENTERIC TABLET PO (09:40)
[2024-08-12] MEDS: CYANOCOBALAMIN 500 MCG TABLET PO (09:40)
[2024-08-12] MEDS: ATORVASTATIN 10 MG TABLET PO (09:40)
[2024-08-12] MEDS: hydroCHLOROthiazide 12.5 MG CAPSULE PO (09:40)
--- NOTE | 2024-08-12 13:02 | P.CONCA_ITS ---
Assessment and Plan Assessment and plan (1) Hypertension: Qualifiers: Hypertension type: primary hypertension Qualified Code(s): I10 - E ssential (primary) hypertension Code(s): I10 - Essential (primary) hypertension Status: Chronic (2) Bradycardia, sinus: Code(s): R00.1 - Bradycardia, unspecified Status: Acute Plan 60-year-old man with hypertension initially presented with dizziness, nausea, and vomiting now found to have sinus bradycardia sinus bradycardia - has not noticed any pauses in the last 24 hours - previously mentioned pauses may be secondary to increased autonomic activation secondary to nausea and vomiting from his vertigo - he can follow up with Cardiology outpatient hypertension - goal systolic blood pressure less than 130 - continue irbesartan 150 mg/hydrochlorothiazide 12.5 mg p.o. daily hyperlipidemia - continue atorvastatin 10 mg every evening History of Present Illness History of Present Illness Consult date/time: 08/12/24 13:02 Requesting physician: Deana Santamaria APRN Consult reason: Other Reason For Visit: vertigo Narrative: 60-year-old man with hypertension initially presented with dizziness, nausea, and vomiting. This has been ongoing for the last 2 days and upon admission he was evaluated for vertigo. He is also now found to have bradycardia with ventricular rates of 40s for which Cardiology has been consulted. He wears an Apple watch at home and has noticed increasing heart rates with exertion at a lower resting heart rate. He denies any exertional intolerance or syncopal episodes. Prior to his episodes of vertigo, he has not felt any illness, sickness or physical exertion limited by dizziness, chest pain, or shortness of breath. He has not noticed any exertional syncopal episodes either. Review of Systems Review of Systems: All systems reviewed & are unremarkable except as noted in HPI and below PMFSH Past Medical History Medical History Arthritis B12 deficiency GERD (gastroesophageal reflux disease) Hyperlipidemia Hypertension Surgical History Surgical History History of hip replacement January 2019, Left Hip History of tonsillectomy Family History Family History Father Cancer Hypertension Depression Sibling Cancer Grandparent Cerebrovascular accident Social History Social History Smoking status: Never smoker Alcohol intake: never Substance use: never Do You Feel Safe in your Home?: Yes Lack of Transportation: No Lack of Food: Never True Current Housing: I Have Housing Concerned About Future Housing: No Difficulty Paying Gas/Electric Bills: No Difficulty Paying for Meds: No Currently Unemployed: No Education: Trade/Vocational Certificate Difficulty w/ Childcare or Family Care: No Spiritual care concerns: No Meds Home Medications and Allergies Home Medications Medication Instructions Recorded Confirmed Type aspirin 81 mg tablet,delayed 81 mg PO DAILY 04/29/22 08/11/24 History release buspirone 7.5 mg tablet 7.5 mg PO BID PRN anxiety #30 tabs 03/29/24 08/11/24 Rx irbesartan 150 1 tablet PO DAILY #90 tabs 04/27/24 08/11/24 Rx mg-hydrochlorothiazide 12.5 mg tablet atorvastatin 10 mg tablet 10 mg PO DAILY #90 tabs 05/14/24 08/11/24 Rx pantoprazole 40 mg tablet,delayed 40 mg PO QAM #90 tabs 05/21/24 08/11/24 Rx release trazodone 100 mg tablet 200 mg PO QHS #180 tabs 07/23/24 08/11/24 Rx cholecalciferol (vitamin D3) 1,000 mcg PO DAILY 08/11/24 08/11/24 History mecobalamin (vitamin B12) 1,000 500 mcg PO DAILY 08/11/24 08/11/24 History mcg chewable tablet (B12 Active) Allergies Allergy/AdvReac Type Severity Reaction Status Date / Time codeine Allergy Severe Anaphylaxis Verified 08/11/24 09:53 Sulfa (Sulfonamide AdvReac Intermediate Other Verified 08/11/24 09:53 Antibiotics) Vital Signs Vital Signs - 24 hr 08/11/24 15:40 08/11/24 16:00 08/11/24 21:32 Temperature 36.8 C 36.2 C L Pulse Rate 54 L 57 L 53 L Respiratory Rate 16 16 Blood Pressure 136/54 L 101/50 L Pulse Oximetry 96 97 Oxygen Delivery 08/11/24 20:00 08/11/24 20:00 08/12/24 00:00 Temperature Pulse Rate 47 L 43 L Respiratory Rate Blood Pressure Pulse Oximetry Oxygen Delivery Room Air 08/12/24 04:00 08/12/24 04:29 08/12/24 08:10 Temperature 36.2 C L 36.7 C Pulse Rate 44 L 53 L 49 L Respiratory Rate 16 12 Blood Pressure 126/71 148/59 H Pulse Oximetry 95 98 Oxygen Delivery 08/12/24 08:49 08/12/24 11:45 Temperature 36.7 C Pulse Rate 50 L Respiratory Rate 16 Blood Pressure 139/65 Pulse Oximetry 95 96 Oxygen Delivery Room Air Exam Const: General: comfortable HENMT: Mouth: Yes moist mucous membranes Eyes: EOM: EOMs intact bilaterally Neck: Neck: no JVD Resp: Effort & Inspection: normal respiratory effort Auscultation: clear to auscultation bilaterally Cardio: Rate: bradycardic Rhythm: regular rhythm GI: GI Palp: Yes Soft to palpation Skin: Other: Multiple skin lesions across the back Neuro: Speech: normal speech Extrem: General: normal to inspection Results Labs and Meds 08/12/24 06:39 08/12/24 06:39 Lab results: Lipids 08/12/24 Range/Units 06:39 Triglycerides 98 (<150) mg/dL Cholesterol 132 (0-200) mg/dL CBC 08/12/24 Range/Units 06:39 WBC 4.3 L (4.5-10.0) K/mm3 RBC 4.55 L (4.6-6.20) M/mm3 Hgb 12.1 L (14.0-18.0) g/dL Hct 38.8 L (42.0-52.0) % Plt Count 174 (150-375) k/mm3 Lymph # (Auto) 1.08 (0.9-3.2) K/mm3 [place] # (Auto) 0.4 (0.1-0.6) K/mm3 Eos # (Auto) 0.2 (0-0.3) K/mm3 Baso # (Auto) 0.1 (0.0-0.1) K/mm3 Comprehensive Metabolic Panel 08/12/24 Range/Units 06:39 Sodium 139 (137-145) mmol/L Potassium 4.1 (3.4-5.0) mmol/L Chloride 105 (98-107) mmol/L Carbon Dioxide 31 H (22-30) mmol/L BUN 17 (9-20) mg/dL Creatinine 1.20 (0.7-1.3) mg/dL Glucose 119 H (65-110) mg/dL Calcium 9.0 (8.4-10.2) mg/dL Intake and Output 08/11/24 08/12/24 08/12/24 23:59 07:59 15:59 Intake Total 200 0 Balance 200 0 Intake: Oral 200 0 Other: # Unmeasured Voids 1 1
[2024-08-12] MEDS: traZODone HCL 50 MG TABLET 200 MG PO (21:04)
[2024-08-13] VITALS (8 sets, daily range): BP systolic 139–164; BP diastolic 63–69; PULSE 41–57; RESP 16–20; TEMP 36.4–37.1; O2SAT 92–98
[2024-08-13] MEDS: ASPIRIN 81 MG ENTERIC TABLET PO (08:31)
[2024-08-13] MEDS: IRBESARTAN 150 MG TABLET PO (08:31)
[2024-08-13] MEDS: CHOLECALCIFEROL 1,000 UNITS TABLET 1000 UNITS PO (08:32)
[2024-08-13] MEDS: busPIRone HCL 5 MG TABLET PO (08:32)
[2024-08-13] MEDS: PANTOPRAZOLE 40 MG TABLET PO (08:32)
[2024-08-13] MEDS: MECLIZINE HCL 12.5 MG TABLET PO ×2 (08:32→12:08)
[2024-08-13] MEDS: hydroCHLOROthiazide 12.5 MG CAPSULE PO (08:32)
[2024-08-13] MEDS: ATORVASTATIN 10 MG TABLET PO (08:32)
[2024-08-13] MEDS: CYANOCOBALAMIN 500 MCG TABLET PO (08:32)
--- NOTE | 2024-08-13 09:22 | P.PNCA_ITS ---
Progress Note: A&P Assessment and Plan (1) Bradycardia, sinus: Code(s): R00.1 - Bradycardia, unspecified Status: Acute Assessment and Plan: Overnight, when patient was noted to be sleeping, pauses of 4-6 seconds noted. Patient was asymptomatic. He is feeling well this morning. Patient reports that he does have TONIE, but does not always wear his CPAP mask as it can be uncomfortable. Pauses noted during sleep likely due to uncontrolled TONIE. At this time, does not need a permanent pacemaker. Will arrange for an event monitor and follow up in our office. Encourage patient to wear his CPAP whenever sleeping. Avoid AV blaine blocking agents. (2) Hypertension: Qualifiers: Hypertension type: primary hypertension Qualified Code(s): I10 - Essential (primary) hypertension Code(s): I10 - Essential (primary) hypertension Status: Chronic Assessment and Plan: Stable. Continue Irbesartan, HCTZ. (3) Hyperlipidemia: Code(s): E78.5 - Hyperlipidemia, unspecified Status: Acute Assessment and Plan: Continue Atorvastatin. (4) Vertigo: Code(s): R42 - Dizziness and giddiness Status: Acute Assessment and Plan: Workup as per primary team. Plan Recommendations and plan discussed with Hospitalist. Okay to discharge home from a cardiac standpoint. Subjective Date/time seen: 08/13/24 09:22 Interval history: Reason for visit: Bradycardia, pauses overnight. HPI: 60-year-old man with hypertension initially presented with dizziness, nausea, and vomiting. This has been ongoing for the last 2 days and upon admission he was evaluated for vertigo. He is also now found to have bradycardia with ventricular rates of 40s for which Cardiology has been consulted. He wears an Apple watch at home and has noticed increasing heart rates with exertion at a lower resting heart rate. He denies any exertional intolerance or syncopal episodes. Prior to his episodes of vertigo, he has not felt any illness, sickness or physical exertion limited by dizziness, chest pain, or shortness of breath. He has not noticed any exertional syncopal episodes either. Date of service 08/13: Overnight, when patient was noted to be sleeping, pauses of 4-6 seconds noted. Patient was asymptomatic. He is feeling well this morning without any complaints. Review of Systems Review of Systems: All systems reviewed & are unremarkable except as noted in HPI and below (HPI) Exam Const: General: comfortable and no acute distress HENMT: Mouth: Yes moist mucous membranes Eyes: General: appearance normal, both eyes and all related structures Sclera: sclerae normal Resp: Effort & Inspection: normal respiratory effort Cardio: Rate: regular rate Rhythm: regular rhythm Skin: General skin exam: normal color Neuro: Speech: normal speech Psych: Mental Status: mental status grossly normal Affect: normal affect Objective Data Vital Signs Vital Signs: Vital Signs - 24 hr 08/12/24 11:45 08/12/24 16:33 08/12/24 12:00 Temperature 36.7 C 36.8 C Pulse Rate 50 L 58 L 52 L Respiratory Rate 16 12 Blood Pressure 139/65 155/61 H Pulse Oximetry 96 94 Oxygen Delivery Oxygen Flow Rate 08/12/24 16:00 08/12/24 19:54 08/12/24 20:00 Temperature 36.8 C Pulse Rate 59 L 53 L Respiratory Rate 16 Blood Pressure 144/68 H Pulse Oximetry 94 Oxygen Delivery Room Air Oxygen Flow Rate 08/12/24 20:00 08/12/24 22:00 08/12/24 23:39 Temperature Pulse Rate 52 L 42 L Respiratory Rate Blood Pressure Pulse Oximetry Oxygen Delivery Room Air Oxygen Flow Rate 08/12/24 23:47 08/13/24 00:00 08/13/24 02:00 Temperature 36.8 C Pulse Rate 50 L 45 L 43 L Respiratory Rate 18 Blood Pressure 124/69 Pulse Oximetry 95 Oxygen Delivery Oxygen Flow Rate 08/13/24 04:00 08/13/24 04:00 08/13/24 04:00 Temperature 36.8 C Pulse Rate 44 L 44 L Respiratory Rate 18 Blood Pressure 141/67 H Pulse Oximetry 96 98 Oxygen Delivery Nasal Cannula Oxygen Flow Rate 2 08/13/24 05:47 08/13/24 08:00 Temperature 36.4 C Pulse Rate 41 L 54 L Respiratory Rate 20 Blood Pressure 164/63 H Pulse Oximetry 95 Oxygen Delivery Oxygen Flow Rate Intake/Output Intake/Output: Intake & Output 08/10/24 08/11/24 08/12/24 08/13/24 23:59 23:59 23:59 23:59 Intake Total 1440 490 400 Balance 1440 490 400 Meds/Results Medications: Active Medications Generic Name Dose Route Start Last Admin Trade Name Freq PRN Reason Stop Dose Admin Acetaminophen 650 mg 08/11/24 08:36 Acetaminophen 325 Mg Tablet PO Q4H PRN Mild Pain (1-3) or Fever Aspirin 81 mg 08/12/24 09:00 08/13/24 08:31 Aspirin 81 Mg Enteric Tablet PO 81 mg DAILY BASIM Administration Atorvastatin Calcium 10 mg 08/12/24 09:00 08/13/24 08:32 Atorvastatin 10 Mg Tablet PO 10 mg DAILY BASIM Administration Buspirone HCl 5 mg 08/11/24 16:51 08/13/24 08:32 Buspirone Hcl 5 Mg Tablet PO 5 mg BID PRN Administration anxiety Buspirone HCl 2.5 mg 08/11/24 16:52 Buspirone Hcl 2.5 Mg Tablet PO BID PRN anxiety Cyanocobalamin 500 mcg 08/12/24 09:00 08/13/24 08:32 Cyanocobalamin 500 Mcg Tablet PO 500 mcg QAM [facility] Administration Hydralazine HCl 10 mg 08/11/24 13:03 Hydralazine Hcl 20 Mg/Ml Vial IV PUSH Q8H PRN BP greater than 180/90 Hydrochlorothiazide 12.5 mg 08/12/24 09:00 08/13/24 08:32 Hydrochlorothiazide 12.5 Mg Capsule PO 12.5 mg QAM [facility] Administration Irbesartan 150 mg 08/12/24 09:00 08/13/24 08:31 Irbesartan 150 Mg Tablet PO 150 mg QAM [facility] Administration Meclizine HCl 12.5 mg 08/11/24 17:00 08/13/24 08:32 Meclizine Hcl 12.5 Mg Tablet PO 12.5 mg QID [facility] Administration Ondansetron HCl 4 mg 08/11/24 08:36 Ondansetron Inj 4 Mg/2 Ml Vial IV PUSH Q4H PRN Nausea Pantoprazole Sodium 40 mg 08/12/24 09:00 08/13/24 08:32 Pantoprazole 40 Mg Tablet PO 40 mg QAM [facility] Administration Trazodone HCl 200 mg 08/11/24 21:00 08/12/24 21:04 Trazodone Hcl 50 Mg Tablet PO 200 mg QHS [facility] Administration Vitamin D 1,000 units 08/12/24 09:00 08/13/24 08:32 Cholecalciferol 1,000 Units Tablet PO 1,000 units DAILY [facility] Administration Radiology Results: ITS Impressions Head/Neck CTA 08/11/24 07:58 IMPRESSION: 1. Normal brain. No aneurysm or significant intracranial arterial stenosis. 2. 0% stenosis of the proximal internal carotid arteries relative to normal distal artery lumen diameters (NASCET criteria).
--- NOTE | 2024-08-13 13:21 | P.DS_ITS ---
DS: Admitting Diagnosis Discharge Date 08/13/2024 Admitting Diagnosis Vertigo first-degree AV block hypertension DS: Discharge Diagnosis Discharge Diagnosis (1) Vertigo: Code(s): R42 - Dizziness and giddiness Status: Acute (2) First degree AV block: Code(s): I44.0 - Atrioventricular block, first degree Status: Acute (3) Hypertension: Qualifiers: Hypertension type: primary hypertension Qualified Code(s): I10 - Essential (primary) hypertension Code(s): I10 - Essential (primary) hypertension Status: Chronic DS: Summary Hospital Course Reason for hospitalization: vertigo first-degree AV block hypertension Hospital Course: 68 year old male with PMH of arthritis, GERD, and HTN presents to the hospital with dizziness. Patient's vitals were stable on admission with noted bradycardia. A head/ neck CTA was obtained and showed a normal brain without aneurysm or significant intracranial arterial stenosis. Neurology was consulted. Patient was already on atorvastatin and a daily aspirin. Spoke with Dr. Villareal and there is no need to add Plavix at this time. Per chart review, patient refused an MRI stating he is requesting outpatient MRI due to severe anxiety. Patient's neuro exam remained benign throughout his admission. Overnight patient developed worsening bradycardia and a pause was seen on telemetry. Patient remained asymptomatic. He was moved to IMU and Cardiology was consulted. The pauses were likely due to increased autonomic activation secondary to nausea /vomiting from his vertigo verses uncontrolled sleep apnea. Per Cardiology patient does not need a permanent pacemaker and will instead be discharged on an event monitor with follow-up in the office. Encouraged patient to wear his CPAP at night. At time of discharge patient had no complaints denying chest pain, shortness a breath, dizziness / lightheadedness, nausea/ vomiting, and abdominal pain. patient discharged home in a stable condition. he is to follow-up with PCP in 1 week and Cardiology as scheduled. Status at Discharge Functional status at discharge: independent ambulation Time Spent with Patient Time attestation: Total time spent providing and/or coordinating discharge services: Time spent: Greater than 30 minutes Exam Narrative: AF HR 51 RR 16 SpO2 95 BP 139/65 General: male in no acute respiratory distress who is nontoxic appearing, lying semi recumbent in bed. HEENT: Normocephalic. Atraumatic. Extraocular movement intact. Sclera clear and anicteric. No facial asymmetry. no nystagmus. Chest: Lungs are clear to auscultation bilaterally. No wheezes or crackles. CV: Heart was bradycardic and regular rhythm. S1/S2. No murmurs, gallops, or rubs. Abd: Abdomen was soft. Nontender. Nondistended. Positive bowel sounds. No organomegaly or masses. Ext: No clubbing, cyanosis, or edema. 2+ DP pulses bilaterally. Neuro: Patient is alert and oriented x4. Cranial nerves 2-12 are intact. Speech is clear. DS: Data Data Completed and Pending Completed studies during hospitalization: head/neck CTA Discharge Plan Discharge Attending physician on discharge: Roger Velarde Consulting providers: Osmel Mendoza; Karen Barahona Discharging Clinician: Marjorie Baez Anticipated Discharge Date/Time: 08/13/24 13:21 Patient Disposition: Home, Self-Care Activity: as tolerated Diet: as tolerated and heart healthy Discharge Instructions: Discharge disposition: Patient was admitted to the hospital for dizziness Imaging was obtained and showed a normal brain and 0% stenosis of the carotid arteries Patient was evaluated by Neurology who recommended MRI however patient refusing. He is to obtain an MRI in the outpatient setting with follow-up in the neurology office Take medications as prescribed continue atorvastatin and daily aspirin started on meclizine for dizziness, -is information on this medication Eat well balanced meals and stay hydrated Strict bleeding precautions since you are on daily aspirin including shaving with an electric razor, holding pressure for greater than 20 minutes for injury, protection of had with any falls, etc. During patient's admission he had a slow heart rate which was evaluated Cardiology Per Cardiology this may be due to autonomic activation secondary to nausea vomiting from his vertigo vs poorly controlled sleep apnea Strongly encourage consistent use of CPAP machine Patient is to wear a Holter monitor Follow-up with Cardiology in the outpatient setting Monitor blood pressures Take caution while standing, rising, or moving Change positions slowly taking a break between each position change If you standing feel dizzy sit back down and take a break Encouraged to continue with yearly vaccinations Return to the emergency department if he developed sudden shortness of breath, chest pain, nausea, vomiting, upset stomach or intractable diarrhea Return to the emergency department if you develop fever greater than 101.5 Follow-up with the primary care physician within 1 weeks Thank you for choosing [facility] for your healthcare needs Patient Instructions: Meclizine (By mouth), Vertigo (DC), Bradycardia (DC), Dizziness (GEN), Holter Monitor (GEN) Patient Language: Luxembourgish Stand Alone Forms: General Discharge Information Follow-up/Referrals: Karen Barahona DO [Physician] - Call for Appointment Osmel Mendoza MD [Physician] - Call for Appointment Ja Hurley DO [Primary Care Provider] - 1 Week Discharge Medications: New meclizine 12.5 mg Tablet 12.5 mg PO QID Qty: 120 0RF Continued buspirone 7.5 mg tablet 7.5 mg PO BID PRN (Reason: anxiety) Qty: 30 1RF aspirin 81 mg tablet,delayed release (DR/EC) 81 mg PO DAILY mecobalamin (vitamin B12) [B12 Active] 1,000 mcg Tablet,Chewable 500 mcg PO DAILY cholecalciferol (vitamin D3) 1,000 mcg PO DAILY irbesartan-hydrochlorothiazide 150-12.5 mg tablet 1 tablet PO DAILY Qty: 90 3RF atorvastatin 10 mg tablet 10 mg PO DAILY Qty: 90 3RF pantoprazole 40 mg tablet,delayed release (DR/EC) 40 mg PO QAM Qty: 90 2RF trazodone 100 mg tablet 200 mg PO QHS Qty: 180 1RF Other Ambulatory Orders: [place] cardiac event monitor (Routine) Timeframe: 2 Weeks Location: Determined by Patient Ordered By: Lance Patino Date of admission: 08/11/24 09:05 Primary Care Provider: Ja Hurley Admitting Provider: Roger Velarde Attending physician on admission: Marjorie Baez Condition: Stable Hospitalist MIPS Heart Failure (Exclusion) Patient has history of Heart Transplant or Left Ventricular Assistive Device?: No IF YES, STOP HERE Heart Failure (Qualifier) Patient has current or prior documentation of LVEF less than or equal to 40%, or mod/servere depressed LVSF?: No IF NO, STOP HERE
== END 2024-08-13 14:20 | disposition home or self-care (01) ==
LOC: ANHED 08:36 → ANH3MED 09:36 → ANHIMU 08-12 07:44
PROVIDERS: Student in an Organized Health Care Education/Training Program; Admitting Provider Internal Medicine; Emergency Provider Student in an Organized Health Care Education/Training Program; PCP Internal Medicine; Visit Provider Student in an Organized Health Care Education/Training Program
DX: R42 Dizziness and giddiness (principal); I44.0 Atrioventricular block, first degree; I10 Essential (primary) hypertension; R00.1 Bradycardia, unspecified; E78.5 Hyperlipidemia, unspecified; K21.9 Gastro-esophageal reflux disease without esophagitis; E53.8 Deficiency of other specified B group vitamins; Z79.82 Long term (current) use of aspirin; Z79.899 Other long term (current) drug therapy
CPT/HCPCS: 36415; 70496; 70498; 80048; 80053; 80061; 83036; 85025; 93005; 96361; 96374; 96375; 99285; A9270; G0378; J1200; J3360; J7030; Q9967